=== PATIENT | female | born 2000 | race Two or more races ===

== ENCOUNTER → 2025-06-23 07:56 | Outpatient (REF) | payer OTHER, SELFPAY | LOC: PNTC 07:56 | PROVIDERS: ATTENDING PHYSICIAN Obstetrics & Gynecology | DX: O99.212 Obesity complicating pregnancy, second trimester (principal) | CPT/HCPCS: 76805 ==

== ENCOUNTER → 2025-07-20 08:44 | Outpatient (REF) | payer OTHER, SELFPAY | LOC: PNTC 08:44 | PROVIDERS: ATTENDING PHYSICIAN Obstetrics & Gynecology | DX: O99.212 Obesity complicating pregnancy, second trimester (principal); Z36.3 Encounter for antenatal screening for malformations; Z36.86 Encounter for antenatal screening for cervical length; Z86.32 Personal history of gestational diabetes | CPT/HCPCS: 76811; 76817 ==

== ENCOUNTER → 2025-08-10 10:14 | Outpatient (REF) | payer OTHER, SELFPAY ==
--- NOTE | 2025-08-09 15:47 | PN.DIAED06 ---
Meal Plan - Gestational
- Breakfast
Gestational Diabetes Meal Plan Name: 2000 calories
Breakfast - Total Carbohydrate (grams): 45 (1 carb serving = 15 g)
Breakfast - Starch Carbohydrate: 2 (carbs = starch, milk/yogurt, fruit)
Breakfast - Fruit Carbohydrate: 0 (no fruit or juice before noon)
Breakfast - Milk Carbohydrate: 1
Breakfast - Nonstarchy Vegetables: Yes
Breakfast - Meat/Protein: 1 (1 serving protein = 1 oz/7g)
Breakfast - Fat: 2 (1 serving fat = 5 g)
- Morning Snack
Morning Snack - Total Carbohydrate (grams): 30
Morning Snack - Starch Carbohydrate: 1
Morning Snack - Fruit Carbohydrate: 0 (no fruit or juice before noon)
Morning Snack - Milk Carbohydrate: 1
Morning Snack - Nonstarchy Vegetables: Yes
Morning Snack - Meat/Protein: 0
Morning Snack - Fat: 0
- Lunch
Lunch - Total Carbohydrate (grams): 45
Lunch - Starch Carbohydrate: 1
Lunch - Fruit Carbohydrate: 1
Lunch - Milk Carbohydrate: 1
Lunch - Nonstarchy Vegetables: Yes
Lunch - Meat/Protein: 2
Lunch - Fat: 2
- Afternoon Snack
Afternoon Snack - Total Carbohydrate (grams): 30
Afternoon Snack - Starch Carbohydrate: 1
Afternoon Snack - Fruit Carbohydrate: 1
Afternoon Snack - Milk Carbohydrate: 0
Afternoon Snack - Nonstarchy Vegetables: Yes
Afternoon Snack - Meat/Protein: 1
Afternoon Snack - Fat: 0
- Dinner
Dinner - Total Carbohydrate (grams): 45
Dinner - Starch Carbohydrate: 2
Dinner - Fruit Carbohydrate: 1
Dinner - Milk Carbohydrate: 0
Dinner - Nonstarchy Vegetables: Yes
Dinner - Meat/Protein: 2
Dinner - Fat: 2
- Evening Snack
Evening Snack - Total Carbohydrate (grams): 45
Evening Snack - Starch Carbohydrate: 1
Evening Snack - Fruit Carbohydrate: 1
Evening Snack - Milk Carbohydrate: 1
Evening Snack - Nonstarchy Vegetables: Yes
Evening Snack - Meat/Protein: 1
Evening Snack - Fat: 0
--- NOTE | 2025-08-09 15:56 | PN.DE ---
Diabetes Education
- -
08/09/2025 GESTIONAL DIABETES CONSULT
Met with patient today for medical nutrition therapy. G2, P1, with an DAV of 10/23/2025
Explained glucose metabolism in body and what occurs during to cause increase blood sugar. Discussed importance of keeping BS well controlled to avoid complications to the baby during and after (macrosomia, hypoglycemia).
Discussed macronutrients, provided with 1800 shar GDM meal plan.
Discussed physical activity and importance in lowering glucose values
She presented to the appointment with Contour Next test strips, additional supplies on backorder. I provided her with a Contour Next Glucometer and lancets. Reviewed proper testing technique, testing sites and testing pattern. She is aware to test
FBS and 2 hr pp each meal. Expected results for FBS <95 mg/dl and 2 hr pp <120 mg/dl. Noted for blood sugar of 120mg/dl 1 hr after breakfast this morning. Log sheet provided for her to record results, she will send a 4-day meal log with all her FBG
and 2hr Post prandial glucose numbers to this office for review. In addition, she will send all her glucose readings [facility] every Friday.
She was encouraged to reach out should she require insulin.
--- NOTE | 2025-08-10 14:50 | PN.DE ---
Diabetes Education
- -
08/10/2025 GESTATIONAL DIABETES EDUCATION
Met with patient today for medical nutrition therapy. G2, P1, with an DAV of 12/04/2025.
She had GSD with her first pregancy over 2 years ago.
Explained glucose metabolism in body and what occurs during to cause increase blood sugar. Discussed importance of keeping BS well controlled to avoid complications to the baby during and after (macrosomia, hypoglycemia).
Discussed macronutrients, provided with 2000 shar GDM meal plan.
Discussed physical activity and importance in lowering glucose values. She is currently not exercising regularly, she may walk twice a week.
Her dietary choices include pancakes, eggs, makes her own sourdough bread; eats spicy ramen, sandwiches, tuscany brown dip with sourdough or rice; pasta, bread and black brown soup for dinner. She snacks on ice cream and other sweets after dinner. We
discussed proper portion sizes of carbs, the importance of high fiber carbs and combining with protein and fats; eat carbohydrate last in a meal.
She presented to the appointment with a glucose monitor from previous . we reviewed proper testing technique, testing sites and testing pattern. She is aware to test FBS and 2 hr pp each meal. Expected results for FBS <95 mg/dl and 2 hr pp
<120 mg/dl. Noted for blood sugar of 161mg/dl 1.5 hrs after breakfast this morning. Log sheet provided for her to record results, she will send a 4-day meal log with all her FBG and 2hr Post prandial glucose numbers to this office for review. In
addition, [facility]
She was encouraged to reach out should she require insulin.
== END ==
LOC: DES 10:14
PROVIDERS: ATTENDING PHYSICIAN Student in an Organized Health Care Education/Training Program
DX: O24.419 Gestational diabetes mellitus in pregnancy, unspecified control (principal)
CPT/HCPCS: 99078

== ENCOUNTER → 2025-08-19 08:17 | Outpatient (REF) | payer OTHER, SELFPAY | LOC: DES 08:17 | PROVIDERS: ATTENDING PHYSICIAN Obstetrics & Gynecology Maternal & Fetal Medicine | DX: O24.419 Gestational diabetes mellitus in pregnancy, unspecified control (principal) | CPT/HCPCS: 99078 ==

== ENCOUNTER → 2025-08-29 15:02 | Outpatient (REF) | payer OTHER, SELFPAY | LOC: PNTC 15:02 | PROVIDERS: ATTENDING PHYSICIAN Obstetrics & Gynecology | DX: O24.414 Gestational diabetes mellitus in pregnancy, insulin controlled (principal); O99.212 Obesity complicating pregnancy, second trimester | CPT/HCPCS: 76816 ==

== ENCOUNTER → 2025-09-27 06:55 | Outpatient (REF) | payer OTHER, SELFPAY | LOC: PNTC 06:55 | PROVIDERS: ATTENDING PHYSICIAN Obstetrics & Gynecology | DX: O99.213 Obesity complicating pregnancy, third trimester (principal); O24.414 Gestational diabetes mellitus in pregnancy, insulin controlled | CPT/HCPCS: 76816 ==